=== PATIENT | male | born 1990 | race Caucasian/White ===

== ENCOUNTER 2021-03-17 10:55 | Outpatient (RCR) | payer OTHER, MEDICAID, SELFPAY ==
--- NOTE | 2021-03-17 12:14 | PTOPEVAL ---
Thank you for referring Kelvin Mary to [facility].? The patient is scheduled to be seen for therapy? ___3_x/week for 12 visits. Please review, sign, date and return this plan of care STEFAN. I agree with and certify that the following plan of care is medically necessary. Referring Physician Date Admitting Provider: Attending Provider: Lg Wing, MD Referring Provider: *PT Outpatient Evaluation Start: 03/17/21 10:56 Freq: Status: Active Protocol: Document 03/17/21 10:56 CHRIS (Rec: 03/17/21 12:14 CHRIS [id number]) Therapy Assessment Status Assessment Status Assessment Status Evaluation Evaluation Information Problem Diagnosis s/p patellar OATS procedure Onset 03/06/21 Subjective Information Pt. reports that he underwent Query Text:As Reported By Patient/ surgery on 03/06/21. He Family states that he is using a cane and is FWB with his brace on. He reports that pain is not too intense through the day, but takes pain medication in the morning and before going to bed at night. 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 He reports that he has to do alot of ladder climbing, crotching and crawling with his work and would like to be able to return to those activities. 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 Prior Level of Function Activity Level (Last 3 Months) Occupation HVAC Hand Dominance Right Activity of Daily Living Ability Independent Indoor/Home Mobility Independent Community Mobility Independent Stairs Ability Independent Functional Cognition (Planning, Shopping Independent , Taking Medications) Cooking Yes Cleaning Yes Laundry Yes Shopping Yes Driving Yes Pain Assessment Timing of Pain Assessment Timing of Pain Assessment Pre-Treatment Pain Scale Pain Scale Used Numeric (1 - 10) Self Report Pain Assessm
--- NOTE | 2021-04-16 09:19 | PTOPEVAL ---
Thank you for referring Kelvin Mary to [facility].? The patient is scheduled to be seen for therapy? ____x/week for ___ weeks. Please review, sign, date and return this plan of care STEFAN. I agree with and certify that the following plan of care is medically necessary. Referring Physician Date Admitting Provider: Attending Provider: Lg Wing, MD Referring Provider: *PT Outpatient Evaluation Start: 03/17/21 10:56 Freq: Status: Active Protocol: Document 04/16/21 08:10 [facility] (Rec: 04/16/21 09:19 [facility] [id number]) Therapy Assessment Status Assessment Status Assessment Status Evaluation Evaluation Information Problem Diagnosis s/p patellar OATS procedure Onset 03/06/21 Subjective Information patient reports he feels good Query Text:As Reported By Patient/ this date. he reports he has Family gotten his NMES device in the mail. he reports he has been back to the MD who has progressed in rom, resistance training, and removed his brace. he presents with new orders to continue skilled PT 3x weekly for 12 more visits. Pain Assessment Timing of Pain Assessment Timing of Pain Assessment Assessment Self Report Self Report Pain Level 0 Pain Score Pain Score 0: Self Report Lower Extremity Range of Motion General Lower Extremity Range of Motion Gross Lower Extremity Range of Motion R knee arom mobility 0-125 Comments degrees Lower Extremity Muscle Strength Testing General Lower Extremity Strength Gross Lower Extremity Strength 4/5 R hip flex strength 3+/5 R knee ext strength sitting EOB at 20 degrees flexion Muscle Length Testing Muscle Length Testing Gastrocnemius Length (R) Moderate Tightness,(L) Moderate Tightness Muscle Length Testing Comments moderate bilateral hamstrings tightness Gait Assessment Gait Pattern Assessment Other Gait Observations patient ambulates with stiff R knee posture entering clinic this date without R immobilizer on. he was educated in ambulation mechanics this date focusing on heel toe mechanics and including knee flexion during gait mechanics this date. he displays improved mechanics
== END 2021-05-09 14:52 | disposition home or self-care (01) ==
LOC: CHSPT 10:55
PROVIDERS: Visit Provider Orthopaedic Surgery
DX: Z98.890 Other specified postprocedural states (principal)
CPT/HCPCS: 97014; 97110; 97161; 97530; G0283

== ENCOUNTER 2023-08-07 15:53 | Emergency (ER) | payer OTHER, SELFPAY ==
[2023-08-07] VITALS (12 sets, daily range): BP systolic 110–146; BP diastolic 64–84; PULSE 56–76; RESP 13–20; TEMP 36.4; O2SAT 96–100
--- NOTE | ~2023-08-07 | XR_ITS ---
EXAMINATION: XR chest 1V portable DATE: 08/07/2023 17:03 INDICATION: Near syncope. TECHNIQUE: A single frontal view of the chest was obtained. COMPARISON: None. FINDINGS: There is no pneumonia, pleural effusion, or pneumothorax. The heart size is normal. IMPRESSION: 1. No acute cardiopulmonary disease. Reviewed, dictated and finalized at location E.
--- NOTE | ~2023-08-07 | CT_ITS ---
EXAMINATION: CT brain wo con DATE: 08/07/2023 17:58 INDICATION: Syncope. Headache. TECHNIQUE: Computed tomography (CT) of the head was performed without intravenous contrast. The mA wa s adjusted according to patient size. Iterative reconstruction technique was employed. The dose-lengt h product was 605.33 mGy-cm. COMPARISON: None FINDINGS: There is no intracranial hemorrhage, acute infarction, or abnormal intracranial mass lesion . The ventricles are normal in size. There is mild mucosal thickening in the paranasal sinuses. The m astoid air cells are normal. IMPRESSION: 1. Normal brain. Reviewed, dictated and finalized at location E. IMPRESSION: 1. Normal brain.
--- NOTE | 2023-08-07 16:44 | ED.DIZZY ---
HPI - Dizziness General Chief Complaint: Dizziness Stated Complaint: near syncopy Time Seen by Provider: 08/07/23 16:33 Source: patient Mode of arrival: ambulatory Limitations: no limitations History of Present Illness HPI Narrative: Kelvin is a 32-year-old female patient presenting to the ER today with complaints of having episodes of near-syncope. He reports he is having some visual floater like fire works in both eyes for the past 2 weeks. States that he has a spreading headache for only a few moments after this occurs. Last episode was at 2:40 p.m. today. He is currently being treated for a URI in taking prednisone and azithromycin. States he just quit smoking 5 days ago. 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 Last visual check by eye doctor was 1 year ago. Denies any symptoms currently. No associated nausea or vomiting. Headache resolved spontaneously without abortive treatment Review of Systems Review of Systems: Pertinent positives per HPI. Patient denies any fever, chills, rash, dizziness, sore throat, shortness of breath, chest pain, palpitations, nausea, vomiting, diarrhea, constipation, abdominal pain, or any urinary issues. PMFSH Comments At the time of my signature, I reviewed and agree with the nursing past medical, surgical, social, and family history. There is no relevant family history pertinent to the patient complaint. Exam Narrative: General: Well-developed, well nourished, in no apparent distress Head: Normocephalic, atraumatic Eyes: Pupils equally round and reactive to light bilaterally, EOM intact, sclera and conjunctive clear, no discharge, lids normal Ears: TMs intact and clear, ear canals clear, no drainage, grossly hearing normal. Nose: Nares patent, no discharge, no inflammation, no sinus tenderness. Mouth: Oropharynx without lesions or masses, good dentition, MMM. Tongue midline, even rise and fall of uvula Neck: Supple, trachea midline, no enlargement of anterior or posterior cervical nodes, no thyroid masses or goiter palpable. Cardio: Regular rate and rhythm, s1 and s2 normal, no murmur appreciated. Resp: Clear to auscultation bilaterally anteriorly and posteriorly, no rhonchi, rales, wheezing or rubs Musculoskeletal: No deformity, non-tender to palpation, grossly normal range of motion, muscle strength strong and equal, peripheral pulse strong, no edema, no cyanosis, normal gait and station Neuro: Alert and oriented x4 with normal speech, no focal deficits, cranial nerves I through XII intact, muscle strength 5 out of 5, sensation intact bilaterally, negative Romberg test Course Course Emergency Course: Portions of this record may have been created with voice recognition software. Vital Signs Vital signs: Vital Signs Temperature 36.4 C L 08/07/23 15:53 Pulse Rate 66 08/07/23 15:53 Respiratory Rate 16 08/07/23 15:53 Blood Pressure 146/84 H 08/07/23 15:53 Pulse Oximetry 98 08/07/23 15:53 Temperature 36.4 C L 08/07/23 15:53 Pulse Rate 70 08/07/23 17:45 Respiratory Rate 13 08/07/23 17:45 Blood Pressure 118/80 08/07/23 17:32 Pulse Oximetry 98 08/07/23 17:45 Vital signs reviewed MDM - Dizziness MDM Narrative Medical decision making narrative: At the time of visit patient is resting comfortably on the exam table. Patient appears to be nontoxic. EKG: EKG shows normal sinus rhythm with heart rate of 60 beats per minute without ST elevation, depression, or T-wave inversion. No comparison EKG Labs: CBC shows white blood cell count of 9.2, H&H of 15.4 and hematocrit of 44.3, platelet count 251, chemistry is unremarkable except for a blood sugar of 116, urinalysis is unremarkable, Diagnostics: Chest x-ray shows no acute cardiopulmonary process, CT of the brain shows normal brain. Plan: Neuro checks are negative in the clinic today. I suspect patient may be having ocular migraine. Recommend follow-up with his eye doctor. Supportive me
--- NOTE | 2023-08-07 16:46 | ECG_ITS ---
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 Measurements Intervals [place] Rate: 60 P: 48 LA: 139 QRS: 34 QRSD: 84 T: 20 QT: 416 QTc: 416 Interpretive Statements SINUS RHYTHM INCOMPLETE RIGHT BUNDLE BRANCH BLOCK No previous ECG available for comparison Electronically Signed On 08-08-2023 12:04:51 CDT by Jennifer Kearney M.D.
[2023-08-07 17:18] LABS: Basophils Percent Auto 0.1 % (0.2-1.2); Hematocrit 44.3 % (42.0-52.0); Hemoglobin 15.4 g/dL (14.0-18.0); Immature Granulocyte Absolute 0.04 K/mm3 (0.00-0.031); Immature Granulocyte Percent A 0.4 % (0-0.5); Lymphocytes Absolute Auto 1.26 K/mm3 (0.9-3.2); Lymphocytes Percent Auto 13.7 % (18.3-44.2); Mean Corpuscular HGB Conc 34.8 g/dl (32-36); Mean Corpuscular Hemoglobin 29.3 pg (26-34); Mean Corpuscular Volume 84.2 fl (80-100); Mean Platelet Volume 9.2 fl (7.4-10.4); Monocytes Absolute Auto 0.2 K/mm3 (0.1-0.6); Monocytes Percent Auto 2.1 % (2.6-8.5); Neutrophils Absolute Auto 7.7 K/mm3 (1.3-6.7); Neutrophils Percent Auto 83.7 % (45.5-73.1); Platelet Count Result 251 k/mm3 (150-375); Red Blood Count 5.26 M/mm3 (4.6-6.20); Red Cell Distribution Width 12.5 % (11.5-14.5); White Blood Count 9.2 K/mm3 (4.5-10.0)
[2023-08-07 17:19] LABS: Appearance Urine Clear (Clear); Bilirubin Urine Negative (Negative); Blood Urine Negative (Negative); Color Urine Yellow (Yellow); Glucose Urine UA Negative (Negative); Ketones Urine Negative (Negative); Leukocyte Esterase Ur Negative LEU/UL (Negative); Nitrate Urine Negative (Negative); Protein Urine Negative (Negative); Specific Grav Ur 1.009 (1.001-1.035); Urobilinogen Urine 0.2 mg/dL (<2.0); pH Urine 6.5 (5.0-9.0)
[2023-08-07 17:26] LABS: Add Urine Microscopic? NO
[2023-08-07 17:27] LABS: Alanine Aminotransferase 19 U/L (6-50); Alkaline Phosphatase 76 U/L (38-126); Anion Gap 9 mmol/L (4-12); Aspartate Amino Transferase 25 U/L (17-59); Bilirubin,Total 0.5 mg/dL (0.2-1.3); Blood Urea Nitrogen 14 mg/dL (9-20); Calcium 9.4 mg/dL (8.4-10.2); Carbon Dioxide 27 mmol/L (22-30); Chloride 104 mmol/L (98-107); Estimated CRCL calculation 112 ml/min; Estimated Glomerular Filt Rate > 60; Glucose 116 mg/dL (65-110); Potassium 4.6 mmol/L (3.4-5.0); Sodium 140 mmol/L (137-145)
== END 2023-08-07 18:37 | disposition home or self-care (01) ==
PROVIDERS: Emergency Provider Nurse Practitioner Family
DX: R51.9 Headache, unspecified (principal); H53.9 Unspecified visual disturbance
CPT/HCPCS: 36415; 70450; 71045; 80053; 81003; 85025; 93005; 99284

== ENCOUNTER 2024-04-13 19:39 | Emergency (ER) | payer OTHER, SELFPAY ==
[2024-04-13] VITALS (10 sets, daily range): BP systolic 120–159; BP diastolic 82–93; PULSE 70–87; RESP 12–20; TEMP 36.6; O2SAT 97–100
--- NOTE | ~2024-04-13 | XR_ITS ---
CHEST RADIOGRAPH, PA AND LATERAL CLINICAL HISTORY: chest discomfort--feels heart flutters . COMPARISON: 08/07/2023 TECHNIQUE: PA and lateral views of the chest. FINDINGS The cardiomediastinal silhouette is unremarkable. The lungs are clear. Visualized osseous structures and soft tissues are unremarkable. IMPRESSION: No focal infiltrate or effusion. Reviewed, dictated and finalized at location A. LE TRADER
--- OUTSIDE RECORDS SUMMARY | 2024-04-13 19:41 | XMS_ITS | Encounter Summary ---
Author Organization [facility] Address [address] [facility] [place] [address] Phone Care Team Providers Care Client Leader Name Role Phone Mercy Felix Primary Care Provider + Reason for Visit * Reason Onset Date Comments Patient Intake 04/12/2024 * Consult, Test & Initiate Treatment (Routine) - Closed Specialty Diagnoses / Procedures Referred By Eduardo t Referred To Contact Diagnoses Anxiety Panic attacks Marielos Shaw, [place], TIMBER SKIDDER [address] [address] Phone: tel: fax: [facility] - Behavioral Health Navigator - [address] [address] Phone: tel: fax: Referral ID Status Reason Start Date Expiration Date Visits Re quested Visits Authorized [id number] Closed 04/04/2024 1 1 Encounter Details Date Type Department Care Team (Latest Contact Info) Description 04/12/2024 2:30 PM K 12 PRINCIPAL Patient Navigation [facility] - Behavioral Health Navigator - [place] [address] [place] [address] Marielos Shaw, [place], TIMBER SKIDDER [address] [address] Jackelin Glover Patient Intake Discharge Disposition: Discharged to home or Selfcare Social History Tobacco Use Types Packs/Day Years Used Date Smoking Tobacco: Former Cigarettes Smokeless Tobacco: Never Comments:Quit on 08/02/23 Alcohol Use Standard Drinks/Week Comments Yes 0 (1 standard drink = 0.6 oz pur e alcohol) Rarely PHQ-2 Answer Date Recorded Total Score - Questions 1-9 0 03/09 Sexually Active Control Partners Comments Yes Female Sex and Gender Information Value Date Recorded Sex Assigned at Not on file Legal Sex Male 12:44 PM CDT Gender Identity Not on file Sexual Orientation Not on file documented as of this encounter Progress Notes * Jackelin Glover - 04/12/2024 2:30 PM CST Images from the original note were not included. Behavioral Health Navigation Intake Patient Name: Kelvin Mary Date of Service: 04/12/2024 What is the reason for referral? Counseling What presenting concerns does the patient report? Panic Attacks , Anxiety Does the patient report thoughts that they would be better off or thoughts of hurting themselves/others in some way? Suicidal Ideation: There is no history of suicidal ideation. Homicidal Ideation: There is no history of homicidal ideation. Does the patient report being on any mental health medications? If so, please define: Yes, see chart. Does the patient report any current or past mental health services? If so, please define: (hospitalization, counseling, psychiatry, etc.): Hx of counseling when he was younger but nothing recently. Insurance Status: IDPA/Unknown/None/Private (specify): Cigna Does the patient report any barriers to treatment? (transportation, schedule conflicts, financial, etc) No: Is the patient signed up for [employer]? Yes Plans/Recommendations: Counseling Brief Narrative: Behavioral Health Navigator contacted Kelvin for a telephone intake at 2:30pm to discuss behavioral health resources. Patient was referred to [facility] by Marielos Shaw APRN. Kelvin reports Anxiety and Panic Attacks . Kelvin was given resources for [facility], [facility] and [facility]. Patientwill reach out with any questions/concerns. [employer] message sent to patient. Message to referring provider sent. Patient was instructed to call [phone], [phone], or go to the nearest ED if worsening symptoms or concerns for danger to self/others/inability to care for self. Any insurance/benefit information provided to patient is not a guarantee of coverage. Patient is advised to contact their insurance company to verify coverage for behavioral health services. Patient was instructed to call [phone], [phone] or go to the nearest ED if worsening symptoms or concerns for dangerto self/others/inability to care for self. K 12 PRINCIPAL documented in this encounter Plan of Treatment Upcoming Encounters Date Type Department Care Team (Late st Contact Info) Description 05/30/2024 3:30 PM CDT Office Visit [facility] Medical Group [facility] [place] [address] [place] [address] Mercy Felix PAC [address] [place] [address] documented as of this encounter Goals Goal Patient Goal Type Associated Problems Recent Progress Patient-Stated? Author Psychological Assessment Behavioral Health No Aman López PSYD Note: Kelvin will participate fully in his psychological assessment to determine whether he meets the criteria for ADHD or another condition, within the next 60 days. documented as of this encounter Visit Diagnoses Diagnosis Anxiety Anxiety state, unspecified Panic attacks Panic disorder without agoraphobia documented in this encounter Additional Health Concerns Assessment Noted Time PHQ-9 Depression Total Score: 0 04/04/19 25 3:32 PM K 12 PRINCIPAL documented as of this encounter Care Teams Client Leader Relationship Specialty Start Date End Date Mercy Felix PAC [address] [place] [address] PCP - General Physician Physical Optics Teacher 11/25/22 documented as of this encounter
--- OUTSIDE RECORDS SUMMARY | 2024-04-13 19:41 | XMS_ITS | Referral Summary ---
Author Organization [facility] Address [address] [place] [address] Care Team Providers Care Rag Sorter And Cutter Name Role Phone Mercy Felix Primary Care Provider [phone] Allergies No known active allergies Medications erythromycin (ILOTYCIN) ophthalmic ointment Apply to left eye every 4 (four) hours 3.5 g 1 3 Active Additional Information Patient not taking.Reported on 05/31/2023 buPROPion XL (WELLBUTRIN XL) 150 mg 24 hr tablet Take 1 tablet (150 mg total) by mouth patient safety manager before breakfast 3 Active atomoxetine (STRATTERA) 40 mg capsule Take 1 capsule (40 mg total) by mouth daily 3 Active fluticasone propionate (FLONASE) 50 mcg/actuation nasal spray INSTILL 1 SPRAY INTO EACH NOSTRIL TWICE A DAY 4 Active LORazepam (ATIVAN) 0.5 mg tablet Take 1 tablet (0.5 mg total) by mouth every 6 (six) hours as needed 4 Active Active Problems Problem Noted Date Diagnosed Date Loose body of right knee 12/16/2020 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 Gender Identity Not on file Sexual Orientation Not on file Last Filed Vital Signs Vital Sign Reading Time Taken Comments Blood Pressure 116/78 12/21/2023 3:38 PM CDT Pulse 92 12/21/2023 3:38 PM CDT Temperature 36.9 C (98.5 F) 12/21/2023 3:38 PM CDT Respiratory Rate 18 12/21/2023 3:38 PM CDT Oxygen Saturation 98% 12/21/2023 3:38 PM CDT Inhaled Oxygen Concentration - - Weight 106.1 kg (234 lb) 12/21/2023 3:38 PM CDT Height 170.2 cm (5' 7 ) 12/21/2023 3:38 PM CDT Body Mass Index 36.65 12/21/2023 3:38 PM CDT Plan of Treatment Not on file Insurance [employer] Member Subscriber Plan / Payer (Ef fective 2023-Present) Name:Kelvin Mary Relation to Subscriber:Self Name:Kelvin Mary Payer ID:[id number] (NAIC) Group ID:[id number] Type:CIGNA HMO/PPO Address: [address] [address] WORKERS COMPENSATION GENERIC IDPA Care Teams Rag Sorter And Cutter Relationship Specialty Start Date End Date Mercy Felix PA [address] [address] PCP - General Clinical Services Specialist 11/10/22
--- OUTSIDE RECORDS SUMMARY | 2024-04-13 19:41 | XMS_ITS | Encounter Summary ---
Author Organization [facility] Language Learning Class [facility] Care Team Providers Care Networking Technology Instructor Name Role Phone Mercy Felix Primary Care Provider + Encounter Details Date Type Department Care Team (Latest Contact Info) Description 04/12/2024 Travel Social History Tobacco Use Types Packs/Day Years [...] on file documented as of this encounter Plan of Treatment Upcoming Encounters Date Type Department Care Team (Late st Contact Info) Description 05/30/2024 3:30 PM CDT Office Visit [facility] Medical [facility] [place] [address] [place] [address] Mercy Felix PAC [address] [place] [address] documented as of this encounter Goals Goal Patient Goal Type Associated Problems Recent Progress Patient-Stated? Author Psychological Assessment Behavioral Health No Aman López PSYD Note: Kelvin will participate fully in his psychological assessment to determine whether he meets the criteria for ADHD or another condition, within the next 60 days. documented as of this encounter Visit Diagnoses Not on filedocumented in this encounter Additional Health Concerns Assessment Noted Time PHQ-9 Depression Total Score: 0 04/04/19 25 3:32 PM TAPING SUPERVISOR documented as of this encounter Care Teams Networking Technology Instructor Relationship Specialty Start Date End Date Mercy Felix PAC [address] [place] [address] PCP - General Physician Infection Preventionist 11/25/22 documented as of this encounter
--- OUTSIDE RECORDS SUMMARY | 2024-04-13 19:41 | XMS_ITS | Encounter Summary ---
Author Organization [facility] Address [address] [place] [address] Phone Care Team Providers Care Configurator Name Role Phone Mercy Felix CONSTANTINO Primary Care Provider + Encounter Details Date Type Department Care Team (Late st Contact Info) Description 04/05/2024 Results Follow-Up [facility] Medical Group - Family Medicine - [place] [address] [place] [address] Marielos Shaw APRN, CNP 2 [facility] [address] [place], [place] [id number] Social History Tobacco Use Types Packs/Day Years [...] as of this encounter Progress Notes * Marielos Shaw APRN, CNP - 04/05/2024 3:03 PM CST UA is negative SALES documented in this encounter Plan of Treatment Upcoming Encounters Date Type Department Care Team (Late st Contact Info) Description 05/30/2024 3:30 PM CDT Office Visit [facility] - Family [facility] [address] [place] [address] Mercy Felix PAC [address] [place] [address] documented as of this encounter Goals Goal [...] Time PHQ-9 Depression Total Score: 0 04/04/19 3:32 PM EVP SALES documented as of this encounter Care Teams Configurator Relationship Specialty Start Date End Date Mercy Felix PAC [address] [place] [address] PCP - General Physician Risk Management Professional 11/25/22 documented as of this encounter
--- OUTSIDE RECORDS SUMMARY | 2024-04-13 19:41 | XMS_ITS ---
Author Organization [facility] Address [address] [place] [address] Phone Care Team Providers Care Larder Cook Name Role Phone Unavailable Unavailable Unavailable Plan of Treatment No Plan of Treatment Recorded Assessments Includes: Assessments for all patient encounters No Assessments Recorded Medical Equipment - Implanted Devices Includes: Current and historical Devices No Medical Equipment Recorded Medications Administered Includes: Administered Medications in patient's chart No Administered Medications Recorded Results Includes: Results from 04/13/2023 through 04/13/2024 No Results Recorded For Specified Dates History of Present Illness History of Present Illness not supported for this document type No History of Present Illness Recorded Social History No Social History Recorded - Smoking Status Unknown Medical History Includes: Medical History in patient's chart No Medical History Recorded Family History Includes: Family History in patient's chart No Family History Recorded Review of Systems Review of Systems not supported for this document type No Review of Systems Recorded Mental Status No Mental Status Recorded Functional Status No Functional Status Recorded Physical Exam Physical Exam not supported for this document type No Physical Exam Recorded Clinical Notes Includes: Signed Clinical Notes starting from 03/27/2022 No Clinical Notes Recorded
--- OUTSIDE RECORDS SUMMARY | 2024-04-13 19:41 | XMS_ITS | Clinical Summary ---
Author Organization [facility] Address [address] [place] [address] Phone Care Team Providers Care Manager Software Name Role Phone Mercy Felixmer MEEKS Primary Care Provider + Allergies No known active allergies Medications buPROPion (WELLBUTRIN) 150 MG XL tablet Take 1 Tablet by mouth every morning. 90 Tablet 5 Active hydrOXYzine (ATARAX) 25 MG TabletIndicatio ns:Anxiety,Nerv ousness Take 1 Tablet by mouth every 8 hours as needed for Anxiety. Indications: Feeling Anxious, Feeling Tense 30 Tablet 5 Active atomoxetine (STRATTERA) 40 MG Capsule Take 1 Capsule by mouth daily. 90 Capsule 3 04/04/19 25 Discontinu ed(Therapy completed) buPROPion (WELLBUTRIN) 150 MG XL tablet TAKE 1 TABLET BY MOUTH EVERY DAY IN THE MORNING 90 Tablet 1 3 04/04/19 25 Discontinu ed(Therapy completed) fluticasone (FLONASE) 50 MCG/ACT Suspension INSTILL 1 SPRAY INTO EACH NOSTRIL TWICE A DAY 4 04/04/19 25 Discontinu ed(Therapy completed) LORazepam (ATIVAN) 0.5 MG TabletIndicatio ns:Anxiety Take 1 Tablet by mouth every 6 hours as needed for Anxiety. 10 Tablet 4 04/04/19 25 Discontinu ed(Therapy completed) Active Problems No known active problems Encounters Date Type Department Care Team Description 04/12/2024 2:30 PM ANGLE FURNACEMAN Patient Navigation [facility] - Behavioral Health Navigator - [address] [place] [address] Valeria Marielos Joseph, TULIO, Jackelin Ivan Patient Intake Discharge Disposition: Discharged to home or Selfcare 04/12/2024 Travel 04/07/2024 4:45 PM ANGLE FURNACEMAN Office Visit [facility] [place] [address] [place] [address] Valeria, Marielos Ruiz, TULIO, VINYL HANGER Acute pain of right knee (Primary Dx) Discharge Disposition: Discharged to home or Selfcare 04/07/2024 3:53 PM ANGLE FURNACEMAN - 04/07/2024 11:59 PM ANGLE FURNACEMAN Hospital Encounter [facility] Diagnostic Radiology [address] [place] [address] Marielos Shaw, BEER MERCHANT, VINYL HANGER Discharge Disposition: Discharged to home or Selfcare 04/06/2024 Nurse Triage [facility] [address] [place] [address] Mercy Felix, CONSTANTINO Knee Pain 04/05/2024 Results Follow-Up [facility] [place] [address] [place] [address] Marielos Shaw APRN, CNP 04/04/2024 3:30 PM ANGLE FURNACEMAN Office Visit [facility] [place] [address] [place] [address] Valeria, Marielos Ruiz, TULIO, MITZI Anxiety (Primary Dx); Frequency of urination; Panic attacks Discharge Disposition: Discharged to home or Selfcare 04/04/2024 Travel 04/03/2024 Nurse Triage [facility] [address] [place] [address] Mercy Felix PAC Anxiety (/) from Last 3 Months Immunizations Immunization Administration Dates Next Due DTAP VACCINE 10/01/1997 DTP Vaccine 03/11/1994, 4,01/10/1993,1992 Hepatitis B Vaccine, Pediatric/adolescent 03/19/1997,03/28/1993,1992 Hib Vaccine,unspecified Formulation 06/1994,03/28/1993,01/10/1993,1992 Influenza Vaccine Nasal 12/13/2008 MMR Vaccine 10/01/1997,03/11/1994 OPV 10/01/1997, 4,01/10/1993,1992 TDAP Vaccine 07/14/2007 Family History Medical History Relation Name Comments Heart Surgery Maternal Grandfather Macular Degeneration Maternal Grandmother Relation Name Status Comments Father Alive Maternal Grandfather Alive Maternal Grandmother Alive Mother Alive Social History Tobacco Use Types Packs/Day Years Used Date Smoking Tobacco: Former Cigarettes Smokeless Tobacco: Never Tobacco Cessation:Counseling Given: No Comments:Quit on 08/02/23 Alcohol Use Standard Drinks/Week [...] Sign Reading Time Taken Comments Blood Pressure 120/80 04/07/2024 3:04 PM ANGLE FURNACEMAN Pulse 92 04/07/2024 3:04 PM ANGLE FURNACEMAN Temperature 36.4 C (97.5 F) 04/07/2024 3:04 PM ANGLE FURNACEMAN Respiratory Rate 18 04/07/2024 3:04 PM ANGLE FURNACEMAN Oxygen Saturation 97% 04/07/2024 3:04 PM ANGLE FURNACEMAN Inhaled Oxygen Concentration - - Weight 107.3 kg (236 lb 8 oz) 04/07/2024 3:04 PM ANGLE FURNACEMAN Height 170.2 cm (5' 7 ) 04/07/2024 3:04 PM ANGLE FURNACEMAN Body Mass Index 37.04 04/07/2024 3:04 PM ANGLE FURNACEMAN Plan of Treatment Upcoming Encounters Date Type Department Care Team (Late st Contact Info) Description 05/30/2024 3:30 PM CDT Office Visit [facility] [place] [address] [place] [address] Mercy Felix, PAC [address] [place] [address] Health Maintenance Due Date Last Done Comments DTaP/Tdap/Td Immunization (7 - Td or Tdap) 07/13/2017 07/14/2007, 10/01/1997, 03/11/1994, Additional history exists Influenza Immunization (#1) 2023 12/13/2008 SARS-COV-2 Immunization ( season) 2023 12/16/2020, 11/25/2020 Respiratory Syncytial Virus (RSV) Immunization (Adult) (1 - 1-dose 75+ series) 09/08/2067 Hepatitis B Immunization Completed 998, 03/28/1993, 1992 Hepatitis C Virus (HCV) Screening Completed 11/25/2022 Meningococcal Immunization (ACWY) Aged Out No longer eligible based on patient's age to complete this topic Pneumococcal Immunization Combined Aged Out No longer eligible based on patient's age to complete this topic Rotavirus Immunization Aged Out No lo nger eligible based on patient's age to complete this topic Goals Goal Patient Goal Type Associated Problems Recent Progress Patient-Stated? Author Psychological Assessment Behavioral Health Aman Mccormick PSYD Note: Kelvin will participate fully in his psychological assessment to determine whether he meets the criteria for ADHD or another condition, within the next 60 days. Procedures Procedure Name Priority Date/Time Associated Diagnosis Comments XR KNEE 3 VIEWS RIGHT Routine 04/07/2024 4:03 PM ANGLE FURNACEMAN Acute pain of right knee URINALYSIS REFLEX IF INDICATED BY ABNORMAL RESULTS Routine 04/05/2024 7:34 AM ANGLE FURNACEMAN Frequency of urination POCT GLYCOSYLATED HEMOGLOBIN Routine 04/04/2024 4:15 AM ANGLE FURNACEMAN Anxiety Frequency of urination POCT UA AUTOMATED W/O MICRO Routine 04/04/2024 3:45 AM ANGLE FURNACEMAN Anxiety Frequency of urination HEPATITIS C ANTIBODY Routine 11/25/2022 5:07 PM CDT Encounter for hepatitis C screening test for low risk patient from Last 3 Months or Most Recently Relevant to Health Maintenance Results * XR KNEE 3 VIEWS RIGHT (04/07/2024 4:03 PM ANGLE FURNACEMAN) Anatomical Region Laterality Modality LOWER EXTREMITY, knee Right Digital Ra diography 04/09/2024 7:57 PM ANGLE FURNACEMAN Impressions 04/09/2024 7:59 PM ANGLE FURNACEMAN IMPRESSION: Mild patellofemoral compartment right knee osteoarthritis with a small effusion. Narrative 04/09/2024 7:59 PM ANGLE FURNACEMAN EXAM DESCRIPTION: XR KNEE 3 VIEWS RIGHT REASON FOR STUDY: Right knee pain FINDINGS: Three views submitted without comparison. No acute fracture. Alignment is normal. There is mild patellofemoral compartment right knee osteoarthritis. Small effusion is present. THIS IS AN ELECTRONICALLY VERIFIED FINAL REPORT 04/09/2024 7:57 PM - Electronically signed by Victor Hugo Mejía M.D. MF: [id number] Report ID: [id number] Reading Location: [id number] Procedure Note Victor Hugo Mejía MD - 04/09/2024 EXAM DESCRIPTION: XR KNEE 3 VIEWS RIGHT REASON FOR STUDY: Right knee pain FINDINGS: Three views submitted without comparison. No acute fracture. Alignment is normal. There is mild patellofemoral compartment right knee osteoarthritis. Small effusion is present. THIS IS AN ELECTRONICALLY VERIFIED FINAL REPORT 04/09/2024 7:57 PM - Electronically signed by Victor Hugo Mejía M.D. MF: [id number] Report ID: [id number] Reading Location: [id number] IMPRESSION: Mild patellofemoral compartment right knee osteoarthritis with a small effusion. us Marielos N Oehl BEER MERCHANT, VINYL HANGER IMG DIAGNOSTIC ORDERABLES Final Result * URINALYSIS REFLEX IF INDICATED BY ABNORMAL RESULTS (04/05/2024 7:34 AM ANGLE FURNACEMAN) SPECIFIC GRAVITY 1.010 1.003 - 1.030 04/05/2024 12:25 PM ANGLE FURNACEMAN [facility] URINE PH 8.0 5.0 - 9.0 04/05/2024 12:25 PM ANGLE FURNACEMAN [facility] WBC ESTERASE Negative Negative 04/05/2024 12:25 PM ANGLE FURNACEMAN [facility] NITRITE Negative Negative 04/05/2024 12:25 PM ANGLE FURNACEMAN [facility] PROTEIN, RANDOM URINE Negative Negative 04/05/2024 12:25 PM ANGLE FURNACEMAN [facility] URINE GLUCOSE, QUAL Negative Negative 04/05/2024 12:25 PM ANGLE FURNACEMAN [facility] URINE KETONES Negative Negative 04/05/2024 12:25 PM ANGLE FURNACEMAN [facility] UROBILINOGEN Normal Normal mg/dL 04/05/2024 12:25 PM ANGLE FURNACEMAN [facility] URINE BLOOD Negative Negative petros/ul 04/05/2024 12:25 PM ANGLE FURNACEMAN [facility] URINALYSIS COLOR Yellow 04/05/19 12:25 PM ANGLE FURNACEMAN [facility] URINALYSIS CLARITY Clear 04/05/2024 12:25 PM ANGLE FURNACEMAN [facility] Urine URINE SPECIMEN COLLECTION, CLEAN CATCH / Unknown Non-Phlebotomy Collection / Unknown 04/05/2024 7:34 AM ANGLE FURNACEMAN 04/05/2024 7:34 AM ANGLE FURNACEMAN June N Valeria ANTUNEZ CNP URINE ORDERABLES Final Re sult [facility] [address] [place] [address] * POCT GLYCOSYLATED HEMOGLOBIN (04/04/2024 4:15 AM ANGLE FURNACEMAN) [facility] HGB-A1C 5.3 4 - 6 % Blood 04/04/2024 4:15 AM ANGLE FURNACEMAN June N Valeria ANTUNEZ CNP POINT OF CARE TESTING (MA NUAL) Final Result * (ABNORMAL) POCT UA AUTOMATED W/O MICRO (04/04/2024 3:45 AM ANGLE FURNACEMAN) [facility] POC UA SPECIFIC GRAVITY 1.015 URINE PH 7.0 5.0 - 9.0 POC URINE LEUKOCYTES 75 /uL(A) Negative Abdulaziz/uL POC URINE NITRITE Negative Negative POC URINE PROTEIN Negative Negative mg/dL POC URINE GLUCOSE Norm Negative, Norm mg/dL POC URINE KETONE Negative Negative mg/dL POC URINE UROBILINOGEN Norm Norm, 0.2 E.U./dL (mg/dL), 1 E.U./dL (mg/dL) POC URINE BILIRUBIN Negative Negative mg/dL POC URINE BLOOD INSTRUMENT Negative Negative Petros/uL POC URINE COLOR Light Yellow POC URINE CLARITY Clear Urine 04/04/2024 3:45 AM ANGLE FURNACEMAN us Marielos N Oehl BEER MERCHANT, VINYL HANGER POINT OF CARE TESTING (JARRED WHEAT) Final Result * HEPATITIS C ANTIBODY (11/25/2022 5:07 PM CDT) [facility] hepatitis C antibody 0.15 <1 S/CO [facility] ARCH [id number] B 11/26/2022 3:12 PM CDT [facility] Comment: Signal/Cutoff ratio < 0.79 is Nondetected Signal/Cutoff ratio 0.80-0.99 is Grayzone Signal/Cutoff ratio > 0.99 is Detected Supplemental assays are recommended if signal/cutoff ratio is >/=1.00. Signal/cutoff ratio result >/= 5.00 is 97% predictive of positivity for recombinant immunoblot assay (RIBA) and will be reported to the [place] Department of Public Health as required. Blood Venipuncture / Unknown 11/25/2022 5:07 PM CDT 11/25/2022 7:09 PM CDT us Mercy Felix PAC CHEMISTRY ORDERABLES Fin al Result [facility] [address] [place] [address], [place] from Last 3 Months or Most Recently Relevant to Health Maintenance Insurance [employer] Care Teams Manager Software Relationship Specialty Start Date End Date Mercy Felix PAC [address] [place] [address] PCP - General Physician Adhesion Tester 11/25/22
--- OUTSIDE RECORDS SUMMARY | 2024-04-13 19:41 | XMS_ITS | Clinical Summary ---
Author Organization [facility] Address [address] [place] [address] Care Team Providers Care Aircraft Cabin Cleaner Name Role Phone Mercy Felix Primary Care Provider [phone] Allergies No known active allergies Medications erythromycin (ILOTYCIN) ophthalmic ointment Apply to left eye every 4 (four) hours 3.5 g 1 3 Active Additional Information Patient not taking.Reported on 05/31/2023 buPROPion XL (WELLBUTRIN XL) 150 mg 24 hr tablet Take 1 tablet (150 mg total) by mouth protection engineer before breakfast 3 Active atomoxetine (STRATTERA) 40 [...] on file Legal Sex Male 11:11 PM LEAVE MANAGER Gender Identity Not on file Sexual Orientation Not on file Obstetrics History Last Filed Vital Signs Vital Sign Reading [...] 12/21/2023 3:38 PM CDT Plan of Treatment Health Maintenance Due Date Last Done Comments Depression Screening 1992 Hepatitis C Screening 1992 Varicella Vaccines (1 of 2 - 13+ 2-dose series) 01/10/2009 Regular Well Visit/Exam 18-64 2010 DTaP/Tdap/Td Vaccine (7 - Td or Tdap) 07/13/2017 07/14/2007, 10/01/1997, 03/11/1994, Additional history exists Covid-19 Vaccine ( season) 2023 12/16/2020, 11/25/2020 Influenza Vaccine (#1) 2023 12/13/2008 HPV Vaccines Aged Out No longer eligi ble based on patient's age to complete this topic Pneumococcal vaccine <65 Aged Out No longer eligible based on patient's age to complete this topic Insurance [employer] Member Subscriber Plan / Payer (Ef fective 2023-Present) Name:Kelvin Mary Relation to Subscriber:Self Name:Kelvin Mary Payer ID:[id number] (NAIC) Group ID:[id number] Type:MICHAEL HMO/PPO Address: [facility] [address] [place] [address] WORKERS COMPENSATION GENERIC IDPA IDPA Care Teams Aircraft Cabin Cleaner Relationship Specialty Start Date End Date Mercy Felix PA 2 [facility] [address] [address] PCP - General Graphic Manager 11/10/22
--- OUTSIDE RECORDS SUMMARY | 2024-04-13 19:41 | XMS_ITS | Clinical Summary ---
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 Loose body of right knee 12/16/2020 Family History Medical History Relation Comments No Known Problems Brother 1 No Known Problems Brother 2 Arthritis Father gout Knee problems Father Diabetes Mother Heart Disease Mother No Known Problems Sister 1 No Known Problems Sister 2 No Known Problems Sister 3 Relation Status Comments Brother 1 Alive Brother 2 Alive Father Alive Mother Alive Sister 1 Alive Sister 2 Alive Sister 3 Alive Social History Tobacco Use Types Packs/Day Years Used Date Smoking Tobacco: Every Day Cigarettes Smokeless Tobacco: Current Snuff Comments:occasionally Alcohol Use Standard Drinks/Week Comments Yes 0 (1 standard drink = 0.6 oz pur e alcohol) socially Sex and Gender Information Value Date Recorded Sex Assigned at Not on file Legal Sex Male 11:03 PM CDT Gender Identity Not on file Sexual Orientation Not on file Last Filed Vital Signs Vital Sign Reading Time Taken Comments Blood Pressure 141/69 03/06/2021 10:27 AM CASINO DEALER Pulse 105 03/06/2021 10:27 AM CASINO DEALER Temperature 36.4 C (97.5 F) 03/06/2021 10:27 AM CASINO DEALER Respiratory Rate 18 03/06/2021 10:27 AM CASINO DEALER Oxygen Saturation 97% 03/06/2021 10:27 AM CASINO DEALER Inhaled Oxygen Concentration - - Weight 104.3 kg (230 lb) 05/13/2021 9:49 AM CASINO DEALER Height 172.7 cm (5' 8 ) 05/13/2021 9:49 AM CASINO DEALER Body Mass Index 34.97 05/13/2021 9:49 AM CASINO DEALER Plan of Treatment Health Maintenance Due Date Last Done Comments Annual Physical 09/08/1995 Pneumococcal Vaccine: Pediatrics (0 to 5 Years) and At-Risk Patients (6 to 64 Years) (1 of 2 - PCV) 1998 Hepatitis C 2010 DTaP, Tdap and Td Vaccines (7 - Td or Tdap) 07/13/2017 07/14/2007, 10/01/1997, 03/11/1994, Additional history exists COVID-19 Vaccine ( season) 2023 12/16/2020, 11/25/2020 Influenza Adult (#1) 2023 Hepatitis B Vaccines Completed 03/19/1997, 03/28/1993, 1992 HPV Vaccines Aged Out No longer eligi ble based on patient's age to complete this topic Meningococcal B Vaccine Aged Out No l onger eligible based on patient's age to complete this topic Meningococcal Vaccine Aged Out No romeo loco eligible based on patient's age to complete this topic RSV Immunizations Under 20 Months Aged Out No longer eligible based on patient's age to complete this topic Medical Devices Implanted Type Area Spooler Operator Automatic Device Identifier Shelf Expiration Date Model / Serial / Lot Cancellous Plug 9 Implanted:Qty: 1 on 03/06/2021 by Lg Wing MD at [facility] Right: Knee [id number] 04/13/2021 / [id number] / Insurance MEDICAID CIGNA Member Subscriber Plan / Payer (Ef fective 2020-Present) Name:Kelvin Mary Relation to Subscriber:Self Name:Kelvin Mary Payer ID:[id number] (NAIC) Group ID:[id number] Type:Not on file Address: [address] [place] [address] Care Teams Backend Python Developer Relationship Specialty Start Date End Date Himanshu Anderson MD [address] [place] [phone] PCP - General FAMILY PRACTICE 12/05/20
--- OUTSIDE RECORDS SUMMARY | 2024-04-13 19:41 | XMS_ITS ---
Care Plan - [facility] Created on: April 13, 2024 LENKA ROSSI : 1990 Sex: Male Author Organization [facility] Address [address] [place] [phone] Phone Care Team Providers Care Take Down Sorter Name Role Phone Unavailable Unavailable Unavailable
--- OUTSIDE RECORDS SUMMARY | 2024-04-13 19:41 | XMS_ITS | Encounter Summary ---
Author Organization [facility] Address [facility] [place] [address] Care Team Providers Care Music Internship Name Role Phone Regino Wyatt MD Primary Care Provider [phone] Himanshu Anderson MD Primary Care Provider [phone] Encounter Details Date Type Department Care Team (Late st Contact Info) Description 08/13/2018 Abstract [facility] CONVERSION [address] [place] [address] , Generic ConversionMD Social History Tobacco Use Types Packs/Day Years Used Date Smoking Tobacco: Former Sex and Gender Information Value Date Recorded Sex Assigned at Not on file Legal Sex Male 11:03 PM CDT Gender Identity Not on file Sexual Orientation Not on file documented as of this encounter Plan of Treatment Not on file documented as of this encounter Visit Diagnoses Not on filedocumented in this encounter Additional Health Concerns Infection Onset Date Last Indicated Resolved Time COVID-19 Rule Out 03/03/2021 03/03/2021 03/03/2021 8:08 PM GAMING ASSOCIATE documented as of this encounter Care Teams Music Internship Relationship Specialty Start Date End Date Regino Wyatt MD [address] [place] [phone] PCP - General FAMILY PRACTICE 12/30/18 12/04/20 Himanshu Anderson MD [address] [place] [phone] PCP - General FAMILY PRACTICE 12/05/20 documented as of this encounter
--- NOTE | 2024-04-13 19:55 | ECG_ITS ---
Test Date: 2024-04-13 19:56:11 Measurements Intervals Fowler Rate: 70 P: 71 MO: 158 QRS: 35 QRSD: 103 T: 20 QT: 377 QTc: 407 Interpretive Statements SINUS RHYTHM BASELINE ARTIFACT- I, III, AVR, AVL, V1 NORMAL ECG Compared to ECG 08/07/2023 17:09:48 Incomplete right bundle-branch block no longer present Electronically Signed On 04-14-2024 06:41:03 PHARMACY CLERK by Delmer Cline D.O.
[2024-04-13 20:14] LABS: Basophils Absolute Auto 0.03 K/mm3 (0.00-0.10); Basophils Percent Auto 0.3 % (0.0-1.0); Eosinophils Absolute Auto 0.12 K/mm3 (0.02-0.50); Eosinophils Percent Auto 1.2 % (1.0-6.0); Hematocrit 41.9 % (40.0-54.0); Hemoglobin 14.2 g/dL (14.0-18.0); Immature Granulocyte Absolute 0.03 K/mm3 (0.00-0.00); Immature Granulocyte Percent A 0.3 % (0.0-0.0); Lymphocytes Absolute Auto 2.67 K/mm3 (1.10-4.50); Lymphocytes Percent Auto 27.2 % (18.0-42.0); Mean Corpuscular HGB Conc 33.9 g/dL (32-36); Mean Corpuscular Hemoglobin 28.4 pg (27.0-31.0); Mean Corpuscular Volume 83.8 fL (78.0-102.0); Mean Platelet Volume 9.1 fl (8.7-11.0); Monocytes Absolute Auto 0.79 K/mm3 (0.10-0.90); Monocytes Percent Auto 8.1 % (2.0-11.0); Neutrophils Absolute Auto 6.16 K/mm3 (1.70-7.20); Neutrophils Percent Auto 62.9 % (50.0-70.0); Platelet Count Result 213 K/mm3 (150-420); Red Cell Distribution Width 12.5 % (11.6-14.4); White Blood Count 9.8 K/mm3 (4.8-10.8)
--- OUTSIDE RECORDS SUMMARY | 2024-04-13 20:19 | XMS_ITS | Encounter Summary ---
Author Organization [facility] Address [address] [place] [address] Phone Care Team Providers Care Embossing Machine Tender Name Role Phone Mercy Felix Primary Care Provider + Reason for Visit * Reason Onset Date Comments Patient Intake 04/12/2024 * Consult, Test & Initiate Treatment (Routine) - Closed Specialty Diagnoses / Procedures Referred By Eduardo t Referred To Contact Diagnoses Anxiety Panic attacks Marielos Shaw, TULIO, GREEN MARKETING ANALYST [address] [address] Phone: tel: fax: [facility] HealthCare - Behavioral Health Navigator - [address] [address] Phone: tel: fax: Referral ID Status Reason Start Date Expiration Date Visits Re quested Visits Authorized [id number] Closed 04/04/2024 1 1 Encounter Details Date Type Department Care Team (Latest Contact Info) Description 04/12/2024 2:30 PM TAX ASSOCIATE Patient Navigation [facility] HealthCare - Behavioral Health Navigator - [place] [address] [place] [address] Marielos Shaw, TULIO, GREEN MARKETING ANALYST [address] [address] Jackelin Glover Patient Intake Discharge Disposition: Discharged [...] No: Is the patient signed up for [employer]hart? Yes Plans/Recommendations: Counseling Brief Narrative: Behavioral Health Navigator contacted Kelvin for a telephone intake at 2:30pm to discuss behavioral health resources. Patient was referred to [facility] by Marielos Shaw APRN. Kelvin reports Anxiety and Panic Attacks . Kelvin was given resources for [facility], [facility] and [facility]. Patientwill reach out with any questions/concerns. [employer] message sent to patient. Message to referring [...] for dangerto self/others/inability to care for self. ASSOCIATE documented in this encounter Plan of Treatment Upcoming Encounters Date Type Department Care Team (Late st Contact Info) Description 05/30/2024 3:30 PM CDT Office Visit [facility] Medical Group [facility] [address] [place] [address] Mercy Felix PAC [address] [place] [address] documented as of this encounter Goals Goal [...] Total Score: 0 04/04/19 25 3:32 PM TAX ASSOCIATE documented as of this encounter Care Teams Embossing Machine Tender Relationship Specialty Start Date End Date Mercy Felix PAC [address] [place] [address] PCP - General Physician Information Technology Intern 11/25/22 documented as of this encounter
--- OUTSIDE RECORDS SUMMARY | 2024-04-13 20:19 | XMS_ITS | Encounter Summary ---
Author Organization [facility] [email or web address] [facility] Care Team Providers Care Video Poker Floorman Name Role Phone Mercy Felix Primary Care [...] Description 05/30/2024 3:30 PM CDT Office Visit [facility] Medical [facility] [address] [place] [address] Mercy Felix PAC [address] [place] [address] documented as of this encounter Goals Goal [...] Total Score: 0 04/04/19 25 3:32 PM PROPERTY ACCOUNTANT documented as of this encounter Care Teams Video Poker Floorman Relationship Specialty Start Date End Date Mercy Felix PAC [address] [place] [address] PCP - General Physician It Service Manager 11/25/22 documented as of this encounter
--- OUTSIDE RECORDS SUMMARY | 2024-04-13 20:19 | XMS_ITS | Clinical Summary ---
Author Organization [facility] Address [address] [place] [address] Care Team Providers Care Marketing Data Specialist Name Role Phone Mercy Felix Primary Care Provider [phone] Allergies No known active allergies Medications erythromycin (ILOTYCIN) ophthalmic ointment Apply to left eye every 4 (four) hours 3.5 g 1 3 Active Additional Information Patient not taking.Reported on 05/31/2023 buPROPion XL (WELLBUTRIN XL) 150 mg 24 hr tablet Take 1 tablet (150 mg total) by mouth nut sheller machine operator before breakfast 3 Active atomoxetine (STRATTERA) 40 [...] on file Legal Sex Male 11:11 PM STAFF DEVELOPMENT COORDINATOR RN Gender Identity Not on file Sexual Orientation [...] ID:[id number] (NAIC) Group ID:[id number] Type:MICHAEL HMO/PPO Address: [facility] [address] [place] [address] WORKERS COMPENSATION GENERIC IDPA IDPA Care Teams Marketing Data Specialist Relationship Specialty Start Date End Date Mercy Felix PA [address] [facility] [address] [address] PCP - General Glove Turner And Former 11/10/22
--- OUTSIDE RECORDS SUMMARY | 2024-04-13 20:19 | XMS_ITS ---
Care Plan - [facility] Created on: April 13, 2024 LENKA ROSSI : 1990 Sex: Male Author Organization [facility] Address [address] [place] [phone] Phone Care Team Providers Care Real Estate Transaction Manager Name Role Phone Unavailable Unavailable Unavailable
--- OUTSIDE RECORDS SUMMARY | 2024-04-13 20:19 | XMS_ITS | Referral Summary ---
Author Organization [facility] Address [address] [place] [address] Care Team Providers Care Adaptive Physical Education Specialist Name Role Phone Mercy Felix Primary Care Provider [phone] Allergies No known active allergies Medications erythromycin (ILOTYCIN) ophthalmic ointment Apply to left eye every 4 (four) hours 3.5 g 1 3 Active Additional Information Patient not taking.Reported on 05/31/2023 buPROPion XL (WELLBUTRIN XL) 150 mg 24 hr tablet Take 1 tablet (150 mg total) by mouth park warden before breakfast 3 Active atomoxetine (STRATTERA) 40 [...] on file Legal Sex Male 11:11 PM REGULATORY COMPLIANCE MANAGER Gender Identity Not on file Sexual [...] ID:[id number] (NAIC) Group ID:[id number] Type:CIGNA HMO/PPO Address: [address] [address] WORKERS COMPENSATION GENERIC IDPA Care Teams Adaptive Physical Education Specialist Relationship Specialty Start Date End Date Mercy Felix PA [address] [address] PCP - General Dealer Relationship Manager 11/10/22
--- OUTSIDE RECORDS SUMMARY | 2024-04-13 20:19 | XMS_ITS | Clinical Summary ---
Author Organization [facility] Address [address] [place] [address] Phone Care Team Providers Care Pipeline Inspector Name Role Phone Mercy Felixmer MEEKS Primary [...] Department Care Team Description 04/12/2024 2:30 PM RESEARCH PROGRAMMER Patient Navigation [facility] - [place] [address] [place] [address] Valeria Marielos Joseph, TULIO, Jackelin Ivan Patient Intake Discharge Disposition: Discharged to home or Selfcare 04/12/2024 Travel 04/07/2024 4:45 PM RESEARCH PROGRAMMER Office Visit [facility] [address] [place] [address] Valeria, Marielos Ruiz, TULIO, TIE CARRIER Acute pain of right knee (Primary Dx) Discharge Disposition: Discharged to home or Selfcare 04/07/2024 3:53 PM RESEARCH PROGRAMMER - 04/07/2024 11:59 PM RESEARCH PROGRAMMER Hospital Encounter [facility] Diagnostic Radiology [address] [place] [address] Marielos Shaw, JACKET PREPARER, TIE CARRIER Discharge Disposition: Discharged to home or Selfcare 04/06/2024 Nurse Triage [facility] [address] [place] [address] Mercy Felix, CONSTANTINO Knee Pain 04/05/2024 Results Follow-Up [facility] [address] [place] [address] Marielos Shaw APRN, CNP 04/04/2024 3:30 PM RESEARCH PROGRAMMER Office Visit [facility] [address] [place] [address] Valeria, Marielos Ruiz, TULIO, MITZI Anxiety (Primary Dx); Frequency of urination; Panic attacks Discharge Disposition: Discharged to home or Selfcare 04/04/2024 Travel 04/03/2024 Nurse Triage [facility] [address] [place] [address] Mercy Felix PAC Anxiety (/) from Last [...] Comments Blood Pressure 120/80 04/07/2024 3:04 PM RESEARCH PROGRAMMER Pulse 92 04/07/2024 3:04 PM RESEARCH PROGRAMMER Temperature 36.4 C (97.5 F) 04/07/2024 3:04 PM RESEARCH PROGRAMMER Respiratory Rate 18 04/07/2024 3:04 PM RESEARCH PROGRAMMER Oxygen Saturation 97% 04/07/2024 3:04 PM RESEARCH PROGRAMMER Inhaled Oxygen Concentration - - Weight 107.3 kg (236 lb 8 oz) 04/07/2024 3:04 PM RESEARCH PROGRAMMER Height 170.2 cm (5' 7 ) 04/07/2024 3:04 PM RESEARCH PROGRAMMER Body Mass Index 37.04 04/07/2024 3:04 PM RESEARCH PROGRAMMER Plan of Treatment Upcoming Encounters Date Type Department Care Team (Late st Contact Info) Description 05/30/2024 3:30 PM CDT Office Visit [facility] [place] [address] [place] [address] Mercy Felix, PAC [address] [place] [address] Health Maintenance Due Date Last Done Comments [...] 3 VIEWS RIGHT Routine 04/07/2024 4:03 PM RESEARCH PROGRAMMER Acute pain of right knee URINALYSIS REFLEX IF INDICATED BY ABNORMAL RESULTS Routine 04/05/2024 7:34 AM RESEARCH PROGRAMMER Frequency of urination POCT GLYCOSYLATED HEMOGLOBIN Routine 04/04/2024 4:15 AM RESEARCH PROGRAMMER Anxiety Frequency of urination POCT UA AUTOMATED W/O MICRO Routine 04/04/2024 3:45 AM RESEARCH PROGRAMMER Anxiety Frequency of urination HEPATITIS C ANTIBODY Routine 11/25/2022 5:07 PM CDT Encounter for hepatitis C screening test for low risk patient from Last 3 Months or Most Recently Relevant to Health Maintenance Results * XR KNEE 3 VIEWS RIGHT (04/07/2024 4:03 PM RESEARCH PROGRAMMER) Anatomical Region Laterality Modality LOWER EXTREMITY, knee Right Digital Ra diography 04/09/2024 7:57 PM RESEARCH PROGRAMMER Impressions 04/09/2024 7:59 PM RESEARCH PROGRAMMER IMPRESSION: Mild patellofemoral compartment right knee osteoarthritis with a small effusion. Narrative 04/09/2024 7:59 PM RESEARCH PROGRAMMER EXAM DESCRIPTION: XR KNEE 3 VIEWS RIGHT REASON FOR STUDY: Right knee pain FINDINGS: Three views submitted without comparison. No acute fracture. Alignment is normal. There is mild patellofemoral compartment right knee osteoarthritis. Small effusion is present. THIS IS AN ELECTRONICALLY VERIFIED FINAL REPORT 04/09/2024 7:57 PM - Electronically signed by Victor Hugo Mejía M.D. MF: [id number] Report ID: [id number] [facility] Location: [id number] Procedure Note Victor Hugo Mejía MD - [...] Hugo Mejía M.D. MF: [id number] Report ID: [id number] [facility] Location: [id number] IMPRESSION: Mild patellofemoral compartment right knee osteoarthritis with a small effusion. us Marielos N Oehl JACKET PREPARER, TIE CARRIER IMG DIAGNOSTIC ORDERABLES Final Result * URINALYSIS REFLEX IF INDICATED BY ABNORMAL RESULTS (04/05/2024 7:34 AM RESEARCH PROGRAMMER) SPECIFIC GRAVITY 1.010 1.003 - 1.030 04/05/2024 12:25 PM RESEARCH PROGRAMMER [facility] URINE PH 8.0 5.0 - 9.0 04/05/2024 12:25 PM RESEARCH PROGRAMMER [facility] WBC ESTERASE Negative Negative 04/05/2024 12:25 PM RESEARCH PROGRAMMER [facility] NITRITE Negative Negative 04/05/2024 12:25 PM RESEARCH PROGRAMMER [facility] PROTEIN, RANDOM URINE Negative Negative 04/05/2024 12:25 PM RESEARCH PROGRAMMER [facility] URINE GLUCOSE, QUAL Negative Negative 04/05/2024 12:25 PM RESEARCH PROGRAMMER [facility] URINE KETONES Negative Negative 04/05/2024 12:25 PM RESEARCH PROGRAMMER [facility] UROBILINOGEN Normal Normal mg/dL 04/05/2024 12:25 PM RESEARCH PROGRAMMER [facility] URINE BLOOD Negative Negative petros/ul 04/05/2024 12:25 PM RESEARCH PROGRAMMER [facility] URINALYSIS COLOR Yellow 04/05/19 12:25 PM RESEARCH PROGRAMMER [facility] URINALYSIS CLARITY Clear 04/05/2024 12:[address] [facility] Urine URINE SPECIMEN COLLECTION, CLEAN CATCH / Unknown Non-Phlebotomy Collection / Unknown 04/05/2024 7:34 AM RESEARCH PROGRAMMER 04/05/2024 7:34 AM RESEARCH PROGRAMMER June N Valeria ANTUNEZ CNP URINE ORDERABLES Final Re sult [facility] [address] [place] [address] * POCT GLYCOSYLATED HEMOGLOBIN (04/04/2024 4:15 AM RESEARCH PROGRAMMER) [facility] HGB-A1C 5.3 4 - 6 % Blood 04/04/2024 4:15 AM RESEARCH PROGRAMMER June N Valeria ANTUNEZ CNP POINT OF CARE TESTING (MA NUAL) Final Result * (ABNORMAL) POCT UA AUTOMATED W/O MICRO (04/04/2024 3:45 AM RESEARCH PROGRAMMER) [facility] POC UA SPECIFIC GRAVITY 1.015 URINE [...] URINE CLARITY Clear Urine 04/04/2024 3:45 AM RESEARCH PROGRAMMER us Marielos N Oehl JACKET PREPARER, TIE CARRIER POINT OF CARE TESTING (JARRED WHEAT) Final Result * HEPATITIS C ANTIBODY (11/25/2022 5:07 PM CDT) [facility] hepatitis C antibody 0.15 <1 S/CO [facility] ARCH [id number] B 11/26/2022 3:12 PM CDT [facility] Comment: Signal/Cutoff ratio < 0.79 [...] Felix PAC CHEMISTRY ORDERABLES Fin al Result [facility] [address] [place] [address], [place] from Last 3 Months or Most Recently Relevant to Health Maintenance Insurance CIG[employer] Care Teams Pipeline Inspector Relationship Specialty Start Date End Date Mercy Felix PAC [address] [place] [address] PCP - General Physician Booky 11/25/22
--- OUTSIDE RECORDS SUMMARY | 2024-04-13 20:19 | XMS_ITS | Encounter Summary ---
Author Organization [facility] Address [address] [place] [address] Phone Care Team Providers Care Financial Administrator Name Role Phone Mercy Felix CONSTANTINO Primary Care Provider + Encounter Details Date Type Department Care Team (Late st Contact Info) Description 04/05/2024 Results Follow-Up [facility] - Family Medicine - [place] [address] [place] [address] Marielos Shaw APRN, CNP 2 [facility] [address] [place], [place] [id number] Social History Tobacco Use Types Packs/Day Years [...] 04/05/2024 3:03 PM CST UA is negative IOVASCULAR INVASIVE SPECIALIST documented in this encounter Plan of Treatment Upcoming Encounters Date Type Department Care Team (Late st Contact Info) Description 05/30/2024 3:30 PM CDT Office Visit [facility] [address] [place] [address] Mercy Felix PAC [address] [place] [address] documented as of this encounter Goals Goal [...] Depression Total Score: 0 04/04/19 3:32 PM CARDIOVASCULAR INVASIVE SPECIALIST documented as of this encounter Care Teams Financial Administrator Relationship Specialty Start Date End Date Mercy Felix PAC [address] [place] [address] PCP - General Physician Iron Pellet Tester 11/25/22 documented as of this encounter
--- OUTSIDE RECORDS SUMMARY | 2024-04-13 20:19 | XMS_ITS | Encounter Summary ---
Author Organization [facility] Address [facility] [place] [address] Care Team Providers Care Acute Care Physician Name Role Phone Regino Wyatt MD Primary Care Provider [phone] Himanshu Anderson MD Primary Care Provider [phone] Encounter Details Date Type Department Care Team (Late st Contact Info) Description 08/13/2018 Abstract [facility] CONVERSION [address] [place] [address] , Generic ConversionMD Social History Tobacco Use [...] Rule Out 03/03/2021 03/03/2021 03/03/2021 8:08 PM GETTER OPERATOR documented as of this encounter Care Teams Acute Care Physician Relationship Specialty Start Date End Date Regino Wyatt MD [address] [place] [phone] PCP - General FAMILY PRACTICE 12/30/18 12/04/20 Himanshu Anderson MD [address] [place] [phone] PCP - General FAMILY PRACTICE 12/05/20 documented as of this encounter
--- OUTSIDE RECORDS SUMMARY | 2024-04-13 20:19 | XMS_ITS ---
Author Organization [facility] Address [address] [place] [address] Phone Care Team Providers Care Project Facilitator Name Role Phone Unavailable Unavailable Unavailable Plan [...]
--- OUTSIDE RECORDS SUMMARY | 2024-04-13 20:19 | XMS_ITS | Clinical Summary ---
Author Organization [facility] Address [address] [place] [address] Care Team Providers Care Singer Back Tender Name Role Phone Himanshu Anderson MD Primary Care Provider [phone] Allergies No known active allergies Medications No [...] Comments Blood Pressure 141/69 03/06/2021 10:27 AM SPECIAL DUTY NURSE Pulse 105 03/06/2021 10:27 AM SPECIAL DUTY NURSE Temperature 36.4 C (97.5 F) 03/06/2021 10:27 AM SPECIAL DUTY NURSE Respiratory Rate 18 03/06/2021 10:27 AM SPECIAL DUTY NURSE Oxygen Saturation 97% 03/06/2021 10:27 AM SPECIAL DUTY NURSE Inhaled Oxygen Concentration - - Weight 104.3 kg (230 lb) 05/13/2021 9:49 AM SPECIAL DUTY NURSE Height 172.7 cm (5' 8 ) 05/13/2021 9:49 AM SPECIAL DUTY NURSE Body Mass Index 34.97 05/13/2021 9:49 AM SPECIAL DUTY NURSE Plan of Treatment Health Maintenance Due Date [...] this topic Medical Devices Implanted Type Area Non Garment Sewing Machine Operator Device Identifier Shelf Expiration Date Model / Serial / Lot Cancellous Plug 9 Implanted:Qty: 1 on 03/06/2021 by Lg Wing MD at [facility] Right: Knee [id number] 04/13/2021 / [id number] 25 / Insurance MEDICAID CIGNA Member Subscriber Plan / Payer (Ef fective 2020-Present) Name:Kelvin Mary Relation to Subscriber:Self Name:Kelvin Mary Payer ID:[id number] (NAIC) Group ID:[id number] Type:Not on file Address: [address] [place] [address] Care Teams Singer Back Tender Relationship Specialty Start Date End Date Himanshu Anderson MD [address] [place] [phone] PCP - General FAMILY PRACTICE 12/05/20
[2024-04-13 20:29] LABS: SARS-CoV-2 RNA PCR Negative (Negative)
[2024-04-13 20:30] LABS: Influenza A QL RT-PCR Positive (Negative); Influenza B QL RT-PCR Negative (Negative); RSV RNA, RT-PCR Negative (Negative)
[2024-04-13 20:38] LABS: Alanine Aminotransferase 25 U/L (16-63); Albumin Level 4.2 g/dL (3.4-5.0); Alkaline Phosphatase 98 U/L (46-116); Anion Gap 8 mmol/L (4-12); Aspartate Amino Transferase 14 U/L (15-37); Bilirubin,Total 0.2 mg/dL (0.00-1.00); Blood Urea Nitrogen 18 mg/dL (7-18); Carbon Dioxide 32 mmol/L (21-32); Chloride 102 mmol/L (98-108); Estimated CRCL calculation 86 ml/min; Estimated Glomerular Filt Rate > 60; Glucose 102 mg/dL (70-99); Osmolality Calculated 295 mOsm/kg (285-295); Potassium 3.6 mmol/L (3.5-5.1); Sodium 142 mmol/L (136-145); Total Protein 7.7 g/dL (6.4-8.2)
[2024-04-13 20:40] LABS: Troponin I < 4.0 ng/L (0.00-60.4)
--- NOTE | 2024-04-13 20:48 | ED.CHESTPAIN ---
HPI - Chest Pain General Chief Complaint: Chest Pain Stated Complaint: high bp Time Seen by Provider: 04/13/24 19:44 Source: patient Mode of arrival: ambulatory Limitations: no limitations History of Present Illness HPI narrative: this is a 33-year-old male with no significant past medical history presents with chest discomfort with no shortness of breath no audible wheezing as his pain has resolved there is currently no fever chills no nausea vomiting. MD complaint: chest discomfort Onset (ago): hour(s) Related Data Allergies Allergy/AdvReac Type Severity Reaction Status Date / Time poison gonzalez extract Allergy Mild Itching Verified 04/13/24 20:05 Review of Systems Review of Systems: All systems reviewed & are unremarkable except as noted in HPI and below PMFSH Past Medical History Medical History Patient denies medical problems Exam Const: General: healthy appearing and no acute distress Nutritional Appearance: well nourished Orientation/consciousness: patient oriented x3 Limitations: no limitations HENMT: Head: normal to inspection Eyes: Conjunctivae: conjunctivae normal Neck: Neck: normal visual inspection Chest: Chest palpation & inspection: normal inspection of the chest Resp: Effort & Inspection: normal respiratory effort Auscultation: clear to auscultation bilaterally Cardio: Rate: regular rate Rhythm: regular rhythm GI: GI Palp: Yes Soft to palpation : General: Yes bladder normal to palpation Course Course Emergency Course: EKG shows normal sinus rhythm, vital signs are stable he is afebrile chest x-ray with no acute cardiopulmonary abnormality blood work within normal range, patient is positive for influenza and a dose of Tamiflu administered. Vital Signs Vital signs: Vital Signs Oxygen Delivery Room Air 04/13/24 19:39 Temperature 36.6 C 04/13/24 19:43 Pulse Rate 75 04/13/24 20:31 Respiratory Rate 19 04/13/24 20:31 Blood Pressure 133/90 04/13/24 20:31 Pulse Oximetry 98 04/13/24 20:31 Oxygen Delivery Room Air 04/13/24 19:43 MDM - Chest Pain Lab Data 04/13/24 20:11 04/13/24 20:11 Labs: Lab Results 04/13/24 04/13/24 Range/Units 19:46 20:11 WBC 9.8 (4.8-10.8) K/mm3 RBC 5.00 (4.70-6.10) M/mm3 Hgb 14.2 (14.0-18.0) g/dL Hct 41.9 (40.0-54.0) % MCV 83.8 (78.0-102.0) fL MCH 28.4 (27.0-31.0) pg MCHC 33.9 (32-36) g/dL RDW 12.5 (11.6-14.4) % Plt Count 213 (150-420) K/mm3 MPV 9.1 (8.7-11.0) fl Immature Gran % (Auto) 0.3 H (0.0-0.0) % Neut % (Auto) 62.9 (50.0-70.0) % Lymph % (Auto) 27.2 (18.0-42.0) % [place] % (Auto) 8.1 (2.0-11.0) % Eos % (Auto) 1.2 (1.0-6.0) % Baso % (Auto) 0.3 (0.0-1.0) % Lymph # (Auto) 2.67 (1.10-4.50) K/mm3 [place] # (Auto) 0.79 (0.10-0.90) K/mm3 Eos # (Auto) 0.12 (0.02-0.50) K/mm3 Baso # (Auto) 0.03 (0.00-0.10) K/mm3 Abs Immat Gran (auto) 0.03 H (0.00-0.00) K/mm3 Absolute Neuts (auto) 6.16 (1.70-7.20) K/mm3 Absolute Nucleated RBC 0.00 (0.00-0.00) K/mm3 Nucleated RBC % 0.0 (0-0.0) % Sodium 142 (136-145) mmol/L Potassium 3.6 (3.5-5.1) mmol/L Chloride 102 (98-108) mmol/L Carbon Dioxide 32 (21-32) mmol/L Anion Gap 8 (4-12) mmol/L BUN 18 (7-18) mg/dL Creatinine 1.28 (0.70-1.30) mg/dL Estim Creat Clear Calc 86 ml/min Estimated GFR > 60 (59 - ) Glucose 102 H (70-99) mg/dL Calculated Osmolality 295 (285-295) mOsm/kg Calcium 9.0 (8.5-10.1) mg/dL Total Bilirubin 0.2 (0.00-1.00) mg/dL AST 14 L (15-37) U/L ALT 25 (16-63) U/L Alkaline Phosphatase 98 (46-116) U/L Troponin I < 4.0 (0.00-60.4) ng/L Total Protein 7.7 (6.4-8.2) g/dL Albumin 4.2 (3.4-5.0) g/dL TSH 2.30 (0.36-3.74) uIU/mL Influenza A (RT-PCR) Positive A (Negative) Influenza B (RT-PCR) Negative (Negative) RSV (RT-PCR) Negative (Negative) SARS-CoV-2 RNA (RT-PCR) Negative (Negative) Critical Care Time Critical Care Time Critical Care Time: No Discharge Plan Discharge Clinical Impression: Influenza A Patient Disposition: Home, Self-Care Condition: Stable Instructions: Antibiotic Form, Influenza (ED) Additional Instructions: advised take Tylenol or Motrin as needed drink plenty of fluids take medication as prescribed and follow up with primary if symptoms persist or worsen. Patient Language: Citizen Of [place] Prescriptions: New oseltamivir [Tamiflu] 75 mg capsule 75 mg PO Q12H 5 Days Qty: 10 0RF Follow-up/Referrals: Elvira,TALHA Ramires [Primary Care Provider] - Time of Disposition: 20:52
[2024-04-13] MEDS: OSELTAMIVIR PHOSPHATE 75 MG CAPSULE PO (20:55)
== END 2024-04-13 21:01 | disposition home or self-care (01) ==
PROVIDERS: Emergency Provider Emergency Medicine; PCP Physician Assistant
DX: J10.1 Influenza due to other identified influenza virus with other respiratory manifestations (principal); Z20.822 Contact with and (suspected) exposure to COVID-19
CPT/HCPCS: 36415; 71046; 80053; 84443; 84484; 85025; 87637; 93005; 99284; A9270